=== PATIENT | female | born 1935 ===

== ENCOUNTER → 2019-05-03 | Outpatient (CLI) | payer OTHER, BC | LOC: RAD 11:47 → SJCVC 11:47 | DX: R05 Cough (principal); M41.85 Other forms of scoliosis, thoracolumbar region ==

== ENCOUNTER → 2019-08-12 | Outpatient (CLI) | payer OTHER, BC | LOC: SJCVCIMAG 07:49 | DX: I48.0 Paroxysmal atrial fibrillation (principal); E78.5 Hyperlipidemia, unspecified; I10 Essential (primary) hypertension; Z79.899 Other long term (current) drug therapy; Z87.891 Personal history of nicotine dependence ==

== ENCOUNTER → 2019-11-01 | Outpatient (CLI) | payer OTHER, BC | LOC: SJCVC 10:47 | PROVIDERS: ATTEND Internal Medicine | DX: I44.0 Atrioventricular block, first degree (principal); R00.1 Bradycardia, unspecified; I48.0 Paroxysmal atrial fibrillation; R93.1 Abnormal findings on diagnostic imaging of heart and coronary circulation; E78.5 Hyperlipidemia, unspecified; I10 Essential (primary) hypertension; M19.90 Unspecified osteoarthritis, unspecified site; Z82.49 Family history of ischemic heart disease and other diseases of the circulatory system; Z79.82 Long term (current) use of aspirin; Z79.899 Other long term (current) drug therapy; Z87.891 Personal history of nicotine dependence ==